=== PATIENT | female | born 1940 | race Caucasian/White ===

== ENCOUNTER → 2020-02-12 | Outpatient (CLI) | payer MEDICARE ==
[~2020-02-12] MED LIST: ASPIRIN EC325 M1 PO; ASPIRIN EC81 M1 PO; CARVEDILOL3.125 MG PO; CLARITIN5 MG PO; COUMADIN 5 MG TA5 M1 PO; DILTIAZEM ER120 M1 PO; DYAZIDE 37.5-21 EACH PO; FERREX-150 PLU150 MG PO; FISH OIL 1,2001 EAC4 PO; GLUCOSAMINE1000 MG PO; HYDROCODON-ACE1 EAC7; K-DUR10 MEQ PO; LASIX 40 MG TAB40 M2 PO; LIPITOR40 MG PO; MULTIVITAMINS1 EAC7 PO; PACERONE 200 M200 M1 PO; PERCOCET 5-3251 EACH PO; PLAVIX 75 MG TA75 M1 PO; POTASSIUM20; PRADAXA150 MG PO
--- NOTE | 2020-02-12 15:10 | 2DMMODE ---
[place] [address] 2 D/M-MODE ECHOCARDIOGRAM Name: TRACE ALLRED Room: [facility]#: [id number] Admission: 02/12/20 Attend Phys: Elinor Yeager RN Discharge: Date of : 44 Date of Service: 02/12/20 1508 Report #: [id number] THIS REPORT FOR: cc: Physician not on staff Physician not on staff Brian Servin MD [facility] ~ APPROVED REPORT Study performed: 02/12/2020 13:23:39 EXAM: Comprehensive 2D, Doppler, and color-flow Echocardiogram Patient Location: Out-Patient BSA: 1.80 HR: 64 bpm BP: 115/78 mmHg Other Information Study Quality: Good Indications Atrial Fibrillation 2D Dimensions IVSd: 10.22 (7-11mm) LVOT Diam: 20.45 (18-24mm) LVDd: 48.33 mm PWd: 11.53 (7-11mm) Ascending Ao: 33.71 (22-36mm) LVDs: 34.00 (25-40mm) Aortic Root: 27.76 mm Volumes Left Atrial Volume (Systole) LA ESV Index: 28.30 mL/m2 Aortic Valve AoV Peak Esteban.: 1.19 m/s AO Peak Gr.: 5.69 mmHg LVOT Max P.49 mmHg AO Mean Gr.: 3.08 mmHg LVOT Mean P.75 mmHg LVOT Max V: 0.61 m/s AO V2 VTI: 24.12 cm LVOT Mean V: 0.40 m/s CARLITO (VTI): 2.01 cm2 LVOT V1 VTI: 14.76 cm Mitral Valve MV Decel. Time: 143.69 [place] [address] 2 D/M-MODE ECHOCARDIOGRAM Name: TRACE ALLRED Room: [facility]#: [id number] Admission: 02/12/20 Attend Phys: Elinor Yeager RN Discharge: Date of : 44 Date of Service: 02/12/20 1508 Report #: [id number] MV PHT: 41.67 ms MVA (PHT): 5.28 cm2 TDI Medial E' Esteban.: 0.08 m/s Lateral E' Esteban.: 0.12 m/s Pulmonary Valve PV Peak Esteban.: 0.92 m/s PV Peak Gr.: 3.39 mmHg Tricuspid Valve RAP Estimate: 10.00 mmHg TR Peak Gr.: 44.93 mmHg RVSP: 49.93 mmHg PA Pressure: 49.93 mmHg Left Ventricle The left ventricle is normal size. There is normal LV segmental wall motion. There is normal left ventricular wall thickness. Left ventricular systolic function is normal. LVEF is 55-60%. This study is not technically sufficient to allow evaluation of the LV diastolic function due to atrial fibrillation. Right Ventricle Right ventricle is moderately dilated. The right ventricular systolic function is normal. Atria Left atrium is moderately dilated. Right atrium is moderately dilated. Aortic Valve Mild aortic valve sclerosis. Mild aortic regurgitation. There is no aortic valvular stenosis. Mitral Valve The mitral valve is normal in structure. Mild mitral regurgitation. No evidence of mitral valve stenosis. Tricuspid Valve The tricuspid valve is normal in structure. Moderate tricuspid regurgitation. The RVSP is 65 mmHg. Pulmonic Valve The pulmonary valve is normal in structure. [place] [address] 2 D/M-MODE ECHOCARDIOGRAM Name: TRACE ALLRED Room: [facility]#: [id number] Admission: 02/12/20 Attend Phys: Elinor Yeager RN Discharge: Date of : 44 Date of Service: 02/12/20 1508 Report #: [id number] Great Vessels The aortic root is normal in size. IVC is dilated and collapses <50% with inspiration. Pericardium There is no pericardial effusion. <Conclusion> The left ventricle is normal size. There is normal left ventricular wall thickness. Left ventricular systolic function is normal. LVEF is 55-60%. This study is not technically sufficient to allow evaluation of the LV diastolic function due to atrial fibrillation. Right ventricle is moderately dilated. Left atrium is moderately dilated. Right atrium is moderately dilated. Mild aortic valve sclerosis. Mild aortic regurgitation. Mild mitral regurgitation. Moderate tricuspid regurgitation. The RVSP is 65 mmHg. Mild pulmonic regurgitation. IVC is dilated and collapses <50% with inspiration. Moderate pulmonary hypertension. <ELECTRONICALLY SIGNED> By: Brian Servin MD, FACC 02/12/20 1508 1508 1508 Brian Servin MD, FACC /INF
== END ==
LOC: M.CRD 12:45
DX: I08.8 Other rheumatic multiple valve diseases (principal)